=== PATIENT | female | born 1940 | race Caucasian/White ===

== ENCOUNTER 2019-08-22 16:22 | Inpatient (IN) ==
--- NOTE | 2019-08-22 17:08 | Diag Imaging Result Doc PS360 ---
CT HEAD W/O CONTRAST - 08/22/2019 INDICATION: stroke like s/s COMPARISON: None FINDINGS: The ventricles and sulci are normal in size and contour. No intracranial mass or hemorrhage. There is mild periventricular white matter chronic microvascular ischemia. There are a few indeterminate hypodensities in the skull. These could represent cystic osteoporosis, however multiple myeloma cannot be excluded. IMPRESSION: No acute intracranial abnormality. 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 Nonemergent follow-up recommended. This exam was performed using automated exposure control, adjustment of mA or kV according to patient size, and/or use of iterative reconstruction technique Electronically signed by Eliseo Gonzalez 08/22/2019 5:06 PM
[2019-08-22 17:27] LABS: BASO# 0.02 X1000 (0.0-0.2); BASO% 0.3 % (0.0-0.8); EOS% 3.4 % (0.0-10.0); HEMOGLOBIN 13.1 g/dL (12.0-16.0); LYMPH# 1.64 X1000 (1.2-3.4); LYMPH% 28.2 % (20.5-51.1); MCH 27.8 PG (27-31); MCHC 32.8 g/dL (33-37); MCV 84.7 FL (81-99); MONO# 0.61 X1000 (0.11-0.59); MONO% 10.5 % (1.7-9.3); MPV 10.4 FL (7.4-10.4); NEUT# 3.35 X1000 (1.4-6.5); NEUT% 57.6 % (42.2-75.2); PLT 187 X1000 (130-400); RBC 4.72 XMIL (4.2-5.4); RDW 14.8 % (11.5-14.5); WBC 5.82 X1000 (4.8-10.8)
--- NOTE | 2019-08-22 17:42 | Diag Imaging Result Doc PS360 ---
CHEST-1 VIEW - 08/22/2019 INDICATION: possible stroke COMPARISON: None FINDINGS: There is a somewhat linear focal infiltrate or atelectasis in the right lung base. There is some trace atelectasis or effusion at the lateral left lung base. Heart size is top normal. Pulmonary vascularity is normal. IMPRESSION: Small bibasilar infiltrates or atelectasis. Electronically signed by Eliseo Gonzalez 08/22/2019 5:40 PM
[2019-08-22 17:44] LABS: INR 1.05; PROTIME 13.8 Seconds (11.0-16.0)
[2019-08-22 17:45] LABS: PTT 32.4 Seconds (22.3-41.8)
[2019-08-22 17:52] LABS: ALB/GLOB RATIO 1.3; ALBUMIN 3.9 g/dL (3.5-5.0); CALCIUM 9.4 mg/dL (8.8-10.2); MAGNESIUM 1.9 mg/dL (1.5-2.7); TOTAL BILIRUBIN 0.54 mg/dL (0.20-1.00); TOTAL PROTEIN 6.9 g/dL (6.3-8.3)
--- NOTE | 2019-08-22 18:18 | EKG Report ---
Test Performed on : 08/22/2019 5:15:47 PM Test Reason : possible stroke Blood Pressure : / mmHG Vent. Rate : 068 BPM Atrial Rate : 068 BPM P-R Int : 156 ms QRS Dur : 072 ms QT Int : 424 ms P-R-T Axes : 058 011 060 degrees QTc Int : 450 ms Normal sinus rhythm. Normal ECG No previous ECGs available Unconfirmed Result
[2019-08-22] MEDS ORDERED: ZOFRAN IV PRN (18:19)
[2019-08-22] MEDS ORDERED: LABETALOL IV ONE (18:35)
[2019-08-22] MEDS ORDERED: TYLENOL PO PRN (18:37)
--- NOTE | 2019-08-22 19:00 | PROVIDER DOCUMENTATION ---
This chart was entered by Eloina Ashby Scribe, acting as scribe for Hudson Johnson MD. HPI-Neurological Disorder - General Stated Complaint: STROKE Time Seen by Provider: 08/22/19 16:22 Source: patient, EMS ([facility]) Allergies/Adverse Reactions: Patient Allergies Allergy/AdvReac Type Severity Reaction Status Date / Time Penicillins Allergy HIVES Verified 08/22/19 17:28 codeine AdvReac SHORTNESS Verified 08/22/19 17:28 OF BREATH - History of Present Illness-Neuro Nature of Presenting Problem: 79 yowf presents to the ed via ems with c/o CVA sx of facial droop and slurred speech. pt sts onset was approximately 1600 and sx have improved since onset. pt sts has hx of CVA in 2001 and has had multiple TIA since CVA. pt on exam is a/o x3 and nontoxic in appearance. pt denies any pain on exam Onset/Duration: reports: this afternoon (1600) Timing: reports: improving, constant Context: reports: impaired speech, facial droop Character of Altered Mental Status: reports: N/A Any recent trauma/injury?: reports: none Character of Deficits: reports: altered sensation, impaired speech New weakness or altered sensation location:: reports: none Cognitive Baseline: alert, oriented x3 Gait Baseline: walks without assistance Associated Symptoms: reports: slurred speech, other (left sided facial droop of mouth/numbness in RUE and RLE). denies: headache, dizziness, chest pain, vision changes Similar Symptoms Previously?: Yes (hx CVA and TIA) Recently seen or treated by another doctor?: No Review of Systems - Adult - REVIEW OF SYSTEMS - ADULT Constitutional: denies: chills, fever Eyes: denies: blurred vision, double vision Ears, Nose, Mouth & Throat: reports: no symptoms reported Cardiovascular: denies: chest pain, palpitations Respiratory: denies: shortness of breath, wheezing Gastrointestinal: denies: diarrhea, nausea, vomiting Genitourinary: reports: no symptoms reported Musculoskeletal: denies: back pain, neck pain Integumentary: reports: no symptoms reported Neurological: reports: see HPI, numbness (RUE and RLE), slurred speech, other (left mouth droop). denies: dizziness/vertigo, headache/migraines, paresthesia Psychiatric: reports: no symptoms reported Endocrine: reports: no symptoms reported Hematologic/Lymphatic: reports: no symptoms reported Allergic/Immunologic: reports: no symptoms reported All Other Systems: Reviewed and Negative Past History - Adult - PAST MEDICAL HISTORY-ADULT Review of Records: reports: Old Records Reviewed, Nursing Assessment Review, Medications Reviewed, Social history reviewed & non-contributory. Major Childhood Illnesses: reports: denies history Cardiovascular: reports: denies history Respiratory: reports: denies history Gastrointestinal: reports: GERD Obstetrical/Gynecological: reports: denies history Genitourinary: reports: denies history Musculoskeletal: reports: denies history Hand Dominance: Right Handed Neurological: reports: CVA, Parkinson's, TIA Endocrine/Immune: reports: Diabetes Diabetes Type: Type 2 Other Conditions: reports: denies history - PRIOR SURGERIES/PROCEDURES Surgical/Procedure History: reports: reviewed, not pertinent - IMMUNIZATION STATUS Childhood Immunizations: See Nurse Assessment Flu Vaccine: See Nurse Assessment - FAMILY HISTORY Family History: reviewed, not pertinent - SOCIAL HISTORY Smoking: denies Substance Use: denies Living Situation: family Physical Exam- Neurological - Physical Exam-Neuro Initial Vital Signs Reviewed: Yes General Appearance: appears well, alert, no apparent distress, obese Eye Exam: bilateral eye: normal inspection, PERRL, EOMI HENMT: moist mucous membranes, other (mild left sided mouth droop) Head Injury: no evidence of injury Neck: non-tender, full range of motion, normal inspection Respiratory: chest non-tender, lungs clear, normal breath sounds Cardiovascular: normal peripheral pulses, regular rate, rhythm Abdominal Exam: normal bowel sounds, non tender, soft Lymphatic: no adenopathy Extremity: normal range of motion, normal inspection, normal capillary refill 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: normal hearing, normal speech, PERRL, facial droop (left mouth) Motor/Sensory: no motor deficit, no pronator drift, sensory deficit (to left facial near mouth) Neurologic: facial droop (left mouth), sensory deficit (left facial) Integumentary: normal color, normal turgor, warm/dry Psych/Mental Status: normal mood/affect, normal thought content, normal thought process, oriented x 3 - Glascow Coma Scale Best Eye Response: (4) open spontaneously Best Verbal Response: (5) oriented Best Motor Response: (6) obeys commands Total Glascow Score: 15 Progress - PLAN OF CARE/RESULTS Progress/Plan/Lab Results: Vital Signs - 8 hr 08/22/19 16:55 08/22/19 17:02 08/22/19 17:03 Temperature 98.2 F Pulse Rate 79 Respiratory Rate 20 Blood Pressure 164/125 162/102 162/102 O2 Sat by Pulse Oximetry 95 94 L 95 08/22/19 17:45 08/22/19 18:03 08/22/19 18:31 Temperature Pulse Rate 73 73 Respiratory Rate 26 H 24 Blood Pressure 174/110 178/104 O2 Sat by Pulse Oximetry 95 96 96 Laboratory Results - last 24 hr 08/22/19 08/22/19 08/22/19 17:15 17:15 17:15 WBC 5.82 RBC 4.72 Hgb 13.1 Hct 40.0 MCV 84.7 MCH 27.8 MCHC 32.8 L RDW Std Deviation 14.8 H Plt Count 187 MPV 10.4 Immature Gran % (Auto) 0.0 Neut % (Auto) 57.6 Lymph % (Auto) 28.2 Dunn % (Auto) 10.5 H Eos % (Auto) 3.4 Baso % (Auto) 0.3 Immature Gran # (Auto) 0.00 Neut # (Auto) 3.35 Lymph # (Auto) 1.64 Dunn # (Auto) 0.61 H Eos # (Auto) 0.20 Baso # (Auto) 0.02 PT 13.8 INR 1.05 PTT (Actin FS) 32.4 Sodium 138 Potassium 4.0 Chloride 100 Carbon Dioxide 25 Anion Gap 13 BUN 13 Creatinine 1.0 H Estimated GFR/1.73 m2 53 BUN/Creatinine Ratio 13 Glucose 110 H Calculated Osmolality 276 Calcium 9.4 Magnesium 1.9 Total Bilirubin 0.54 AST 18 ALT 10 Alkaline Phosphatase 67 Troponin T Total Protein 6.9 Albumin 3.9 Globulin 3.0 Albumin/Globulin Ratio 1.3 08/22/19 17:15 WBC RBC Hgb Hct MCV MCH MCHC RDW Std Deviation Plt Count MPV Immature Gran % (Auto) Neut % (Auto) Lymph % (Auto) Dunn % (Auto) Eos % (Auto) Baso % (Auto) Immature Gran # (Auto) Neut # (Auto) Lymph # (Auto) Dunn # (Auto) Eos # (Auto) Baso # (Auto) PT INR PTT (Actin FS) Sodium Potassium Chloride Carbon Dioxide Anion Gap BUN Creatinine Estimated GFR/1.73 m2 BUN/Creatinine Ratio Glucose Calculated Osmolality Calcium Magnesium Total Bilirubin AST ALT Alkaline Phosphatase Troponin T < 0.010 Total Protein Albumin Globulin Albumin/Globulin Ratio Orders Category Date Time Status Admit Patient To Inpatient Status Routine AdmDCTranf 08/22/19 18:37 Active Daily Weights 0500 Care 08/22/19 18:39 Active Intake and Output-Strict ORDERED Care 08/22/19 18:17 Active Neurological Check ORDERED Care 08/22/19 18:42 Active Nursing- MD Consult Request ROUTINE Care 08/23/19 08:00 Active Vital Signs Order Q 4-HR ASSESS Care 08/22/19 18:17 Active Z-Document. for Tele Applied ORDERED Care 08/22/19 18:17 Active MD [Physician/Provider Consults] Routine Cons 08/23/19 08:00 Ordered Heart Healthy Diet Diet 08/22/19 18:44 Active CHEST-1 VIEW [RAD] Stat Exams 08/22/19 17:[address] HEAD W/O CONTRAST [CT] Stat Exams 08/22/19 16:25 Completed MRI BRAIN W/O CONTRAST [MRI] Routine Exams 08/23/19 08:00 Ordered A1C HGB W EST AVG GLUCOSE [CHEM] Routine Lab 08/23/19 06:00 Ordered BASIC METABOLIC PANEL [CHEM] DAILY Lab 08/23/19 06:00 Ordered BASIC METABOLIC PANEL [CHEM] DAILY Lab 08/24/19 06:00 Ordered BASIC METABOLIC PANEL [CHEM] DAILY Lab 08/25/19 06:00 Ordered CBC WITH DIFF [HEME] Stat Lab 08/22/19 17:15 Completed CBC WITH NO DIFF [HEME] Routine Lab 08/23/19 06:00 Ordered COMPREHENSIVE METABOLIC PANEL [CHEM] Stat Lab 08/22/19 17:15 Completed LIPID PROFILE W/DIR LDL [LIPIDS] Routine Lab 08/23/19 06:00 Ordered MAGNESIUM [CHEM] Stat Lab 08/22/19 17:15 Completed PROCALCITONIN [ZUÑIGA] Routine Lab 08/22/19 17:15 Received PROTIME WITH INR [COAG] Stat Lab 08/22/19 17:15 Completed PTT [COAG] Stat Lab 08/22/19 17:15 Completed TROPONIN T Urgent Lab 08/22/19 17:15 Completed URINALYSIS W/POSS RFLX CULT [URINALYSIS] Routine Lab 08/22/19 18:45 Uncollected ATORVAstatin [Lipitor] Med 08/22/19 21:00 Ordered 40 mg PO QHS Acetaminophen [Tylenol] Med 08/22/19 18:37 Active 650 mg PO Q6H PRN PRN Aspirin Med 08/23/19 09:00 Active 325 mg PO DAILY Enoxaparin [Lovenox] Med 08/23/19 09:00 Active 40 mg SUBQ DAILY Labetalol Med 08/22/19 18:35 Discontinued 20 mg IV NOW ONE Ondansetron [Zofran] Med 08/22/19 18:19 Active 4 mg IV Q6H PRN PRN Oxygen Device Routine Oth 08/22/19 18:17 Active Pulse Oximetry Routine Oth 08/22/19 18:17 Active Telemetry [OM.EQ] Routine Oth 08/22/19 18:16 Active Carotid Ultrasound Routine Ther 08/23/19 08:00 Ordered EKG [EKG] Stat Ther 08/22/19 17:11 Draft Echo Spec/Color Doppler Routine Ther 08/23/19 08:00 Ordered PT [Physical Therapy Eval/Treatment] [OM.PT] Routine Ther 08/22/19 18:38 Active Swallow Evaluation [OM.SPT] Routine Ther 08/23/19 06:00 Active Transfer/Admit Order [TRANSFER] Routine Transfer 08/22/19 18:41 Ordered pt on exam has her phone ring and answers her phone and has conversation without difficulty Result Diagrams: 08/22/19 17:15 08/22/19 17:15 - REASSESSMENT Reassessment #1 Time Reassessed: 17:47 (pt sx are improving with time and is in no distress ) Status: improving (CT and labs ~ without clinically relevant acute findings. pt reports feels "better," but still has slight sense of numbness in L face. I discussed options incl. intensifying antiplatelet et al Rx (she is currently on 81 ASA and Zocor 20 qd) however she became tearful and indicated she is afraid of completing CVA and prefers observ in hospital if feasible: will discuss w/ Hospitalist service.) Reassessment #2 Time Reassessed: 18:58 Status: unchanged (discussed w/ Hospitalist service, which has agreed to admit. pt aware.) - EKG 1 Time of EKG reading by physician:: 17:15 EKG Read and Signed by:: Hudson Johnson EKG Interpretation (*Must complete 3 of following elements*): Normal Rate: 68 Rhythm: nsr Foster: normal QRS: normal CA Interval: normal ST Wave: normal Prior EKG Comparison: no prior EKG - XRAY 1 XRAY: Bilateral XRAY Study: Chest Impression: See EMR Report (CHEST-1 VIEW - 08/22/2019 INDICATION: possible stroke COMPARISON: None FINDINGS: There is a somewhat linear focal infiltrate or atelectasis in the right lung base. There is some trace atelectasis or effusion at the lateral left lung base. Heart size is top normal. Pulmonary vascularity is normal. IMPRESSION: Small bibasilar infiltrates or atelectasis. Electronically signed by Eliseo Gonzalez 08/22/2019 5:40 PM 08/22/19 1740 Interpreting Physician: Eliseo Gonzalez MD Dictated Date/Time: 08/22/19 1739 cc: Hudson Johnson MD; Dave Kapoor MD) - CT/MRI 1 CT Study: Head Impression: See EMR Report (CT HEAD W/O CONTRAST - 08/22/2019 INDICATION: stroke like s/s COMPARISON: None FINDINGS: The ventricles and sulci are normal in size and contour. No intracranial mass or hemorrhage. There is mild periventricular white matter chronic microvascular ischemia. There are a few indeterminate hypodensities in the skull. These could represent cystic osteoporosis, however multiple myeloma cannot be excluded. IMPRESSION: No acute intracranial abnormality. 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 Nonemergent follow-up recommended. This exam was performed using automated exposure control, adjustment of mA or kV according to patient size, and/or use of iterative reconstruction technique Electronically signed by Eliseo Gonzalez 08/22/2019 5:06 PM 08/22/19 1706 Interpreting Physician: Eliseo Gonzalez MD Dictated Date/Time: 08/22/19 1701 cc: Hudson Johnson MD; Dave Kapoor MD) - CONSULTS/PCP/HOSPITALIST Notification #1 *Consult/PCP/Hospitalist*: Prer[place] Time Discussed: 18:35 Consult Disposition: Will see in ED Departure - Departure Date of Disposition Decision: 08/22/19 Time of Disposition Decision: 18:59 DIAGNOSIS: TIA (transient ischemic attack) Disposition: ADMITTED INPATIENT 09 Certified Medical Emergency: Emergent Condition: Stable Referrals and Follow-Ups: Dave Kapoor MD [Primary Care Provider] - - Critical Care Note This patient required my direct & personal management of CC.: No Attestation - Physician/ MEGHAN Attestation Patient care was provided by Advanced Practice Provider:: No The physician spent face to face time with patient:: Yes Advanced Practice Provider documentation review:: Supervising physician onsite and consulted in the evaluation and care of this patient. The physician did have a face to face encounter with the patient. - NIH Stroke Scale NIH Type: Initial Evaluation Level of Consciousness: 0-Alert LOC Questions (ask month and age): 0-Answers Both Correctly LOC Commands (ask to open & close eyes;make a fist, let go): 0-Obeys Both Correctly Best Gaze (horizontal eye movement): 0-Normal Visual (use finger movement, counting or visual threat): 0-No Visual Loss Facial Palsy (show teeth or raise eyebrows & close eyes tght: 0-Symmetrical Movement Motor Function-left arm: 0-Normal Motor Function-right arm: 0-Normal Motor Function-left le-Normal Motor Function-right le-Normal Limb Ataxia(lzzovi-lguu-yzrszx, or heel to thomson): 0-No Ataxia Sensory(pin prick to face,arms,trunk,legs-compare side/side): 1-Mild to Moderate Decrease in Sensation Best Language(name item/read sentence.Ex-Down to Earth): 0-No Aphasia Dysarthria(Pt read words or say words Ex.Mama,Tip-Top,Thanks: 0-Normal Articulation Extinction and Inattention: 0-Normal NIH Total Score: 1 This chart was documented by the indicated scribe, (Eloina Ashby Scribe) and accurately reflects the services I performed and decisions made by me, Hudson Johnson MD, as attested by the provider's signature.
[2019-08-22] MEDS ORDERED: NS NEB INH SCH (19:15)
[2019-08-22 19:24] LABS: BILIRUBIN URINE NEGATIVE (NEGATIVE); BLOOD URINE NEGATIVE (NEGATIVE); COLOR YELLOW; GLUCOSE URINE NEGATIVE (NEGATIVE); KETONE URINE NEGATIVE (NEGATIVE); LEUKOCYTES URINE MODERATE (NEGATIVE); NITRITE URINE POSITIVE (NEGATIVE); PH URINE 6.5; PROTEIN URINE NEGATIVE (NEGATIVE); SP GRAVITY URINE 1.009; TURBIDITY URINE CLEAR (CLEAR); URINE SOURCE CLEAN CATCH; UROBILINOGEN URINE NORMAL (NORMAL)
[2019-08-22 19:25] LABS: UR EPITHELIAL CELLS <10 /HPF (<10); URINE BACTERIA 2+ /HPF; URINE RBC <10 /HPF (<10)
[2019-08-22] MEDS ORDERED: LEVAQUIN 500 MG/D5W 500 MG/100 ML IVPB IV SCH (20:00)
--- NOTE | 2019-08-22 20:21 | HISTORY AND PHYSICAL ---
PRIMARY CARE PHYSICIAN: Dr. Terrence Kapoor. CHIEF COMPLAINT: "For the past 3 days I have been having numbness and tingling around my mouth and in both hands." HISTORY OF PRESENT ILLNESS: Ms. Landrum is a 79-year-old female with a history of CVA, hyperlipidemia, hypertension and COPD, who was brought to the ER by family because the patient was noted to have difficulty gripping objects in both hands as well as numbness and tingling around her mouth and slurred speech. The patient reports for that for the last 3 days, she has been having episodes of numbness and tingling involving both hands and her mouth. Today, the patient was helping cook [employer] dinner when all of a sudden she started to feel dizzy and started to complain of a headache. 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 The patient reports that she took 81 mg of aspirin in the morning and then took another dose of aspirin prior to arriving to the ER. She complains of dizziness when she tries to stand and the numbness and tingling in both hands. The patient reports that she is on aspirin and has been on it for quite some time. In the ER, a head CT was done that revealed no acute abnormality. The patient was noted to have a blood pressure of 174/110. The patient was able to answer questions appropriately. She denies having any chest pain, but did report some mild shortness of breath while at home. PAST MEDICAL HISTORY: 1. History of CVA. 2. Hyperlipidemia. 3. Hypertension. 4. COPD. PAST SURGICAL HISTORY: 1. Back surgery. 2. Hysterectomy. 3. Bladder tacking. 4. Cholecystectomy. FAMILY HISTORY: Noncontributory due to age. SOCIAL HISTORY: The patient lives at home with family. She is an ex smoker. She denies any alcohol or illicit drug use. ALLERGIES: Penicillin and codeine. HOME MEDICATIONS: The patient does not have her home medication list available at this time. REVIEW OF SYSTEMS: A 12-point review of systems has been performed. Please refer to the history of present illness for pertinent positives and negatives. PHYSICAL EXAMINATION: VITAL SIGNS: Temperature 98.6 degrees, blood pressure 174/110, heart rate 73, respirations 24, O2 saturation 96% on room air. GENERAL: This is a chronically ill-appearing elderly female lying comfortably on the stretcher in no acute distress. SKIN: No rashes, no lesions. Normal capillary refill. HEENT: Normocephalic, atraumatic. PERRLA, EOMI. Oral mucosa is moist. Trachea is midline. NECK: Supple no JVD. No lymphadenopathy. HEART: S1, S2 normal. Regular rate and rhythm. No murmurs or rubs. LUNGS: Equal air entry bilaterally. No wheezing. No rales. No rhonchi. ABDOMEN: Positive bowel sounds. Soft, nontender, nondistended. EXTREMITIES: No edema. No cyanosis. No calf tenderness. NEUROLOGIC: The patient is alert and oriented x4. Cranial nerves 2-12 intact. The patient's gait was not checked. LABS: White blood cell count 5.8, hemoglobin 13, hematocrit 40, platelets 187,000. INR 1. Sodium 138, potassium 4, chloride 100, CO2 25, BUN 13, creatinine 1, glucose 110, calcium 9.4, magnesium 1.9, AST 18, ALT 10, alkaline phosphatase 67. Troponin less than 0.01. Urinalysis positive for nitrites, leukocytes and WBCs and 2+ bacteria. IMAGING: CT of the head reveals no acute abnormality. 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 Chest x-ray shows small basilar infiltrates or atelectasis. ASSESSMENT AND PLAN: 1. Suspected transient ischemic attack. The patient has a history of stroke. She is on aspirin and statin therapy. We will initiate a stroke workup to include an MRI of the brain, carotid Doppler, and an echocardiogram. We will also consult with the neurologist. We will continue on aspirin and statin therapy at this time. 2. Urinary tract infection. We will start the patient on Levaquin. 3. Accelerated hypertension. The patient reports that she is on Lopressor as outpatient. However, she does not have her medication list with her at this time. We will start the patient on a beta-maria and monitor her blood pressure closely. 4. Deep vein thrombosis prophylaxis. We will start the patient on Lovenox. cc: Harini Norman MD [facility]
[2019-08-22] MEDS ORDERED: LIPITOR PO SCH (21:00)
[2019-08-22] MEDS ORDERED: SYMMETREL PO ONE (22:14)
[2019-08-22] MEDS ORDERED: DESYREL PO SCH (22:15)
[2019-08-22] MEDS: XOPENEX NEB INH SCH (22:18)
[2019-08-23 07:23] LABS: HEMATOCRIT 39.2 % (37.0-47.0); HEMOGLOBIN 12.7 g/dL (12.0-16.0); MCH 28.1 PG (27-31); MCHC 32.4 g/dL (33-37); MCV 86.7 FL (81-99); MPV 10.6 FL (7.4-10.4); RBC 4.52 XMIL (4.2-5.4); RDW 14.9 % (11.5-14.5); WBC 4.6 X1000 (4.8-10.8)
[2019-08-23 07:27] LABS: HEMOGLOBIN A1C 5.4 % (4.8-6.0)
[2019-08-23 07:39] LABS: CALCIUM 9.4 mg/dL (8.8-10.2); CREATININE 0.9 mg/dL (0.5-0.9); POTASSIUM 4.4 mmol/L (3.5-5.1)
[2019-08-23] MEDS ORDERED: LOPRESSOR PO SCH (09:00)
[2019-08-23] MEDS ORDERED: LOVENOX SUBQ SCH (09:00)
[2019-08-23] MEDS ORDERED: ASPIRIN PO SCH (09:00)
[2019-08-23] MEDS: XOPENEX NEB INH SCH (09:02)
--- NOTE | 2019-08-23 11:37 | Diag Imaging Result Doc PS360 ---
EXAM: MRI BRAIN W/O CONTRAST HISTORY: Stroke TECHNIQUE: MRI brain without contrast. Axial, sagittal, and coronal images obtained in multiple sequences. COMPARISON: Recent head CT FINDINGS: No recent infarct. There are chronic microvascular ischemic changes. Mild atrophy. No hydrocephalus. No mass or midline shift. No epidural or subdural fluid collection. Normal orbits. No sinus opacification. IMPRESSION: No recent infarct. Electronically signed by Raymond Key 08/23/2019 11:35 AM
--- NOTE | 2019-08-23 11:40 | CONSULTATION ---
DATE OF CONSULTATION: 08/23/2019 LOCATION: Room 300. HISTORY OF PRESENT ILLNESS: Ms. Landrum is 79 years old, and she had some numbness, raising question of stroke or other neurologic event. History from the patient is that she had numbness involving the hands and feet bilaterally, lasting minutes to hours at a time off and on over a period of a few days. She noticed some mostly left-sided vision disturbance the day before yesterday. Yesterday, the numbness seemed to begin in the left limbs, and then became bilateral. Vision disturbance was more prominent. She developed headache. She presented to the hospital and was admitted. Today, she feels normal, completely recovered with no symptoms. She thought she might have a little bit of slurred speech briefly. There was other no associated speech or language difficulty. There was no persistent vision disturbance. She did not perform cover/uncover testing while vision was disturbed. She did not have trouble chewing or swallowing. There was never altered awareness, unconsciousness, memory gap. She did not fall. She did not notice difficulty with gait. 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 She had some transient numbness involving all limbs simultaneously several months ago. That was less prominent, but did occur over a few days. She had some vision disturbance about a year ago, and that resolved. She cannot provide precise history of that now. She reports history of "stroke" in 2001 causing transient numbness in the left limbs. Granddaughter at the bedside reports the "stroke" diagnosis was a little bit uncertain. There was not a clear motor deficit then. She has never had other stroke or neurologic event. Workup includes CT this admission which shows typical scattered micro ischemic change, but no discrete old or recent infarction. Computer record shows MRI is ordered today. Past history is remarkable for hypertension, dyslipidemia, COPD. She reports taking all of her medicines regularly, but she cannot name them. She is certain she did not miss doses. She does know she takes aspirin 81 mg daily. She has been afebrile. Systolic blood pressures have ranged 140s to 160s. Heart rate has ranged 60s to 80s. On my exam, Ms. Landrum is awake, alert, attentive, appropriate. She stuttered a time or two, but speech is not dysarthric, and there was no language deficit on careful bedside testing. Recent and remote memory are good. Head and neck are unremarkable. Visual wiggins are full to confrontational finger counting. Extraocular movements are full. Facial motility is symmetric. She reports equal pinprick and light touch appreciation over the face. Gag is intact. Tongue is midline. She can hear. Shoulder shrug is equal. Strength is normal in the arms and legs. She did well on [id number] testing bilaterally. She did rapid alternating movements symmetrically with the hands. Limb tone is symmetric. Plantar response is silent bilaterally. She has some equivocal responses on sensory testing over the limbs. Mostly, she reported diminished pinprick appreciation over the right palm compared to the left, and symmetric pinprick appreciation over the dorsum of the hand bilaterally. I did not test her gait. IMPRESSION: Transient bilateral tingling. This is unlikely related to cerebrovascular ischemic problem. She has risk factors, but I do not see evidence of acute stroke. I encouraged her to be aggressive with management of her risk factors, to continue aspirin, to keep her appointments with her primary clinic. She and granddaughter and I discussed usual recommendations for emergency management of any future possible stroke-like symptoms. Unless MRI shows something unexpected, I do not think I will have any other suggestions right now. Thank you for asking Neurology to see Ms. Landrum. cc: MD DORA Babcock III
[2019-08-23 11:58] VITALS: BP 154/70
--- NOTE | 2019-08-23 14:20 | ECHO REPORT ---
ORDER DATE: 08/23/2019 INTERPRETING PHYSICIAN: Marc Kang MD. ECHOCARDIOGRAPHIC MEASUREMENTS: 1. Interventricular septum 1.0. 2. Left ventricular posterior wall 1.0. 3. Diastolic diameter 4.9. 4. Left atrium 3.3. 5. Aorta 3.3. FINDINGS: 1. Aortic valve leaflets are trileaflet. 2. Mitral valve was normal. 3. Tricuspid valve was normal. 4. Pulmonic valve was normal. 5. Normal left ventricular cavity size. Estimated ejection fraction of 65 to 70 percent. 6. Mild tricuspid regurgitation. Peak velocity across the tricuspid valve was 2.2 m/sec. 7. Peak velocity across the aortic valve less than 2 m/sec. There is no aortic stenosis or regurgitation. 8. There is grade 1 diastolic dysfunction. 9. There is no pericardial effusion or obvious intracardiac mass or thrombus seen. cc: MD Harini Fierro MD
--- NOTE | 2019-08-25 12:38 | Carotid Study ---
DATE: 08/23/2019 REFERRING PHYSICIAN: Emerson. INTERPRETING PHYSICIAN: Angel. DIRECTOR OF GUIDANCE IN [employer]: Arturo. SUMMARY: The patient is referred for carotid stenosis. The velocities are noted. No significant plaque is seen. The right internal common carotid shows 0.8, left 0.7% stenosis, 0-39 on the right, 0-39 on the left. INTERPRETATION: No significant plaque disease identified. There is antegrade vertebral flow bilaterally. cc: MD Harini Guevara MD
--- NOTE | 2019-09-04 12:40 | DISCHARGE SUMMARY ---
ADMISSION DATE: 08/22/2019 DISCHARGE DATE: 08/23/2019 FINAL DISCHARGE DIAGNOSES: 1. Transient ischemic attack. 2. Accelerated hypertension. 3. Hyperlipidemia. 4. Urinary tract infection secondary to Escherichia coli. 5. Chronic obstructive pulmonary disease. CONSULTATIONS: Neurology consultation with Dr. Haq. HOSPITAL COURSE: Ms. Landrum is a 79-year-old female with a history of multiple medical problems, who presented to the ER with a chief complaint of numbness and tingling around her mouth, and weakness in both hands. The patient was admitted to the Hospitalist Service. A head CT was done in the ER that revealed no acute intracranial abnormality. The stroke workup was initiated, and Neurology was consulted. The patient underwent a brain MRI that showed no evidence of stroke. She also had a carotid Doppler study done that showed no significant plaque disease. She also had an echocardiogram done that revealed grade 1 diastolic dysfunction with an EF of 65% to 70%. By the following day, the patient was back to normal from a neurologic standpoint. The patient was also seen by the neurologist during the hospitalization. The patient did well with physical therapy, and did not require home health per their assessment. The patient was ultimately cleared for discharge on 08/23/2019. DISCHARGE MEDICATIONS: 1. Lopressor 25 mg oral every 12 hours. 2. Aspirin 325 mg oral daily. 3. Levaquin 500 mg oral daily x5 days. 4. Lipitor 20 mg oral at bedtime. 5. Amantadine 100 mg oral at bedtime. 6. Protonix 40 mg p.o. daily. 7. Lasix 20 mg oral daily. 8. Celexa 40 mg p.o. daily. 9. Potassium chloride 10 mEq oral daily. 10. Trazodone 50 mg oral at bedtime. DISCHARGE DIET: Low-sodium, low-cholesterol diet. ACTIVITY: As tolerated. FOLLOWUP INSTRUCTIONS: The patient will need to follow up with her primary care physician in 1 week. cc: Harini Norman MD
== END 2019-08-23 14:30 | disposition home or self-care (01) | DRG 69 ==
LOC: SUPCPDRO → EDBD → ED 16:22 → 3N 20:40 → MERGE 20:40
PROVIDERS: ATTEND Internal Medicine